=== PATIENT | male | born 1960 | race Caucasian/White ===

== ENCOUNTER 2023-12-14 14:38 | Emergency (ER) | payer OTHER ==
[2023-12-14] MEDS ORDERED: ACETAMINOPHEN 500 MG TAB ONE (15:04)
[2023-12-14] MEDS ORDERED: TDAP (DIPHTH,PERTUSS(ACELL),TET VAC) 0.5 ML VIAL IMVAC ONE (15:05)
--- NOTE | 2023-12-14 15:31 | RAD REPORT ---
EXAM DESCRIPTION: CT - CTHCSPWOC - 12/14/2023 3:22 pm CLINICAL HISTORY: Trauma, head and neck injury. fall COMPARISON: No comparisons TECHNIQUE: Axial 5 mm thick images of the head were obtained. Axial 2 mm thick images of the cervical spine were obtained with sagittal and coronal reconstruction images generated and reviewed. All CT scans are performed using dose optimization technique as appropriate and may include automated exposure control or mA/KV adjustment according to patient size. FINDINGS: CT HEAD WITHOUT CONTRAST: No acute hemorrhage, hydrocephalus or extra-axial collection is identified.No areas of brain edema or midline shift. Mild polypoid thickening within the paranasal sinuses.The calvarium is intact. CT CERVICAL SPINE WITHOUT CONTRAST: No fracture or subluxation.Mild mid and lower cervical degenerative changes.No prevertebral soft tiss ues swelling is identified. IMPRESSION: No acute intracranial or cervical spine findings.
--- NOTE | 2023-12-14 15:34 | RAD REPORT ---
EXAM DESCRIPTION: CT - CTFB CLINICAL HISTORY: fall Fall, trauma, facial pain and swelling COMPARISON: Head C Spine Mpr Wo Con dated 12/14/2023 TECHNIQUE: Axial 2 mm thick images of the face were obtained with sagittal and coronal reconstructio n images. All CT scans are performed using dose optimization technique as appropriate and may include automated exposure control or mA/KV adjustment according to patient size. FINDINGS: No acute facial bone fracture is seen.The mandible is intact. The globes and orbital contents are grossly unremarkable.The paranasal sinuses and mastoids demonstra jacinda mild areas of polypoid thickening. IMPRESSION: Negative for facial bone fracture.
--- NOTE | 2023-12-14 17:15 | RAD REPORT ---
EXAM DESCRIPTION: CT - Spine Lumbar Wo Con - 12/14/2023 4:52 pm CLINICAL HISTORY: Radiculopathy. fall COMPARISON: No comparisons TECHNIQUE: Axial noncontrast CT imaging of the lumbar spine was performed with coronal and sagittal re-formatted images. All CT scans are performed using dose optimization technique as appropriate and may include automated exposure control or mA/KV adjustment according to patient size. FINDINGS: No acute lumbar spine fracture seen. No aggressive marrow pattern or malalignment. Paraspinal tissues are normal in thickness. No paraspinal abscess or hematoma seen. There is postsurgical laminectomy changes at L4 and L5. Posterior disc bulging is seen lower lumbar l evels. IMPRESSION: No acute process seen. Postsurgical lumbar spine with mild lumbar spondylosis.
--- NOTE | 2023-12-14 17:17 | ER ---
Nurse's Notes [facility] Name: Nadeem Francis Age: 63 yrs Sex: Male : 1960 Arrival Date: 12/14/2023 Time: 14:38 Bed 15 Private MD: Diagnosis: Facial Contusion, Left Cheek;Fall on same level, unspecified Presentation: 12/13 14:47 Chief complaint: EMS states: MECHANICAL FALL AT [facility] [place], LEFT FACIAL ABRASION. bp Coronavirus screen: At this time, the client does not indicate any symptoms associated with coronavirus-19. Ebola Screen: No symptoms or risks identified at this time. Initial Sepsis Screen: Does the patient meet any 2 criteria? No. Patient's initial sepsis screen is negative. Does the patient have a suspected source of infection? No. Patient's initial sepsis screen is negative. Risk Assessment: Do you want to hurt yourself or someone else? Patient reports no desire to harm self or others. Onset of symptoms was December 14, 2023 at 14:00. 14:47 Method Of Arrival: EMS: [facility] bp 14:47 Acuity: SAPNA 4 bp Triage Assessment: 14:48 General: Appears in no apparent distress. Behavior is calm, cooperative, appropriate bp for age. Pain: Complains of pain in face. EENT: No deficits noted. Neuro: Level of Consciousness is awake, alert, obeys commands, Oriented to Appropriate for age. Cardiovascular: No deficits noted. Injury Description: Abrasion sustained to left cheek. Historical: - Allergies: 14:48 Bactrim; bp - Home Meds: 14:48 gabapentin oral [Active]; bp - PMHx: 14:48 Hypertensive disorder; Diabetes mellitus; Cerebrovascular accident; bp - Immunization history:: Adult Immunizations up to date. - Infectious Disease History:: Denies. - Social history:: Smoking status: unknown. Screenin:[address] [facility] ED Fall Risk Assessment (Adult) History of falling in the last 3 months, bp including since admission No falls in past 3 months (0 pts). Abuse screen: Denies threats or abuse. Denies injuries from another. Nutritional screening: No deficits noted. Tuberculosis screening: No symptoms or risk factors identified. Assessment: 14:50 General: SEE TRIAGE NOTE. bp 17:05 Reassessment: Patient appears in no apparent distress at this time. Patient is alert, bp oriented x 3, equal unlabored respirations, skin warm/dry/pink. Vital Signs: 14:47 BP 158 / 73; Pulse 77; Resp 16; Temp 98; Pulse Ox 98% ; Weight 86.18 kg; Height 5 ft. 9 bp in. ; 17:02 BP 165 / 50; Pulse 60; Resp 18; Pulse Ox 98% on R/A; aw1 17:34 BP 160 / 64; Pulse 71; Resp 16; Pulse Ox 97% ; bp 14:47 Body Mass Index 28.06 (86.18 kg, 175.26 cm) bp Julienne Coma Score: 14:51 Eye Response: spontaneous(4). Motor Response: obeys commands(6). Verbal Response: ec2 oriented(5). Total: 15. ED Course: 14:47 Patient arrived in ED. bp 14:47 Rubin Mir MD is Attending Physician. ec2 14:48 Triage completed. bp 14:48 Arm band placed on. bp 14:50 Patient has correct armband on for positive identification. bp 14:51 Eric Sorto, RN is Primary Nurse. bp 15:23 Facial Bones W/O Con CT In Process Unspecified. EDMS 15:24 CT Head C Spine In Process Unspecified. EDMS 15:26 CT Lumbar Spine Wo Con In Process Unspecified. EDMS 17:34 No provider procedures requiring assistance completed. Patient did not have IV access bp during this emergency room visit. Administered Medications: 15:18 Drug: Boostrix Tdap IM 0.5 ml IM once; as a single dose Route: IM; Site: right deltoid; bp 15:41 Follow up: Response: No adverse reaction bp 15:18 Drug: Acetaminophen PO 1000 mg PO once Route: PO; bp 15:41 Follow up: Response: No adverse reaction bp 17:33 Drug: Ketorolac IM 30 mg IM once Route: IM; Site: left deltoid; bp 17:34 Follow up: Response: No adverse reaction bp Medication: 14:50 VIS not applicable for this client. bp Outcome: 17:17 Discharge ordered by . ec2 17:34 Discharged to home via wheelchair, with family, bp 17:34 Condition: stable 17:34 Discharge instructions given to patient, Instructed on discharge instructions, follow up and referral plans. wound care, Demonstrated understanding of instructions, follow-up care, wound care, 17:35 Patient left the ED. bp Signatures: Dispatcher [employer] Eric Brown RN RN Gloria Hackett aw1 Rubin Mir MD MD ec2
--- NOTE | 2023-12-14 17:17 | EDPHYS ---
Physician Documentation [facility] Name: Nadeem Francis Age: 63 yrs Sex: Male : 1960 Arrival Date: 12/14/2023 Time: 14:38 Bed 15 Private MD: ED Physician Rubin Mir HPI: 12/13 14:51 This 63 yrs old Male presents to ER via EMS with complaints of Facial Injury. ec2 14:51 Patient arrives today for evaluation after probable fall. Patient was walking ec2 subsequently tripped over a curb and fell down. No loss today, not on blood thinners. Complaining of facial pain, neck pain, low back pain.. Historical: - Allergies: 14:48 Bactrim; bp - Home Meds: 14:48 gabapentin oral [Active]; bp - PMHx: 14:48 Hypertensive disorder; Diabetes mellitus; Cerebrovascular accident; bp - Immunization history:: Adult Immunizations up to date. - Infectious Disease History:: Denies. - Social history:: Smoking status: unknown. ROS: 14:51 Constitutional: as per hpi ec2 Exam: 14:51 Constitutional: GEN: NAD Head: atraumatic Eyes: EOMI Ears: External ears are ec2 normal. CV: regular rate LUNGS: no respiratory distress ABD: non-distended SKIN: Abrasion noted to left facial cheek. MSK: No C or T or L-spine deformities. NEURO: moves all extremities equally Vital Signs: 14:47 BP 158 / 73; Pulse 77; Resp 16; Temp 98; Pulse Ox 98% ; Weight 86.18 kg; Height 5 ft. 9 bp in. ; 17:02 BP 165 / 50; Pulse 60; Resp 18; Pulse Ox 98% on R/A; aw1 17:34 BP 160 / 64; Pulse 71; Resp 16; Pulse Ox 97% ; bp 14:47 Body Mass Index 28.06 (86.18 kg, 175.26 cm) bp Hammond Coma Score: 14:51 Eye Response: spontaneous(4). Motor Response: obeys commands(6). Verbal Response: ec2 oriented(5). Total: 15. MDM: 14:47 Patient medically screened. ec2 14:51 Data reviewed: vital signs. ED course: Patient arrives today for evaluation after ec2 probable fall. Examination remarkable for well-appearing nontoxic vigorous otherwise in no acute distress with abrasions noted to the left face. Will update his tetanus status, obtain CT scan of the head and C-spine as well as of the L-spine. Differential diagnosis include facial contusion, intracranial brain bleed, C-spine fracture. Extraocular motions are intact, no evidence of entrapment or significant facial bone injury. 15:44 ED course: CT of the head and C-spine showed no acute traumatic abnormality, CT of the ec2 facial bones showed no facial bone fractures . 12/13 14:51 Order name: CT Head C Spine; Complete Time: 15:43 ec2 12/13 14:51 Order name: CT Lumbar Spine Wo Con; Complete Time: 17:17 ec2 12/13 14:52 Order name: Facial Bones W/O Con CT; Complete Time: 15:43 ec2 Administered Medications: 15:18 Drug: Boostrix Tdap IM 0.5 ml IM once; as a single dose Route: IM; Site: right deltoid; bp 15:41 Follow up: Response: No adverse reaction bp 15:18 Drug: Acetaminophen PO 1000 mg PO once Route: PO; bp 15:41 Follow up: Response: No adverse reaction bp 17:33 Drug: Ketorolac IM 30 mg IM once Route: IM; Site: left deltoid; bp 17:34 Follow up: Response: No adverse reaction bp Disposition Summary: 12/14/23 17:17 Discharge Ordered Notes: Location: Home ec2 Condition: Stable ec2 Diagnosis - Facial Contusion, Left Cheek ec2 - Fall on same level, unspecified ec2 Followup: ec2 - With: Private Physician - When: - Reason: Recheck today's complaints Forms: - Medication Reconciliation Form ec2 - Antibiotic Education ec2 - Prescription Opioid Use ec2 - Patient Portal Instructions ec2 - Leadership Thank You Letter ec2 Signatures: Dispatcher [employer] Eric Brown RN RN bp Rubin Mir MD MD ec2 Corrections: (The following items were deleted from the chart) 14:51 14:51 Head C Spine MPR Wo Con+CT.RAD.BRZ ordered. EDMS EDMS 14:51 14:51 Spine Lumbar Wo Con+CT.RAD.BRZ ordered. EDMS EDMS
[2023-12-14] MEDS ORDERED: KETOROLAC 30 MG/ML INJ ONE (17:22)
[2023-12-14 18:15] VITALS: BP 160/64; TEMP 98; O2SAT 97
== END 2023-12-14 17:35 | disposition home or self-care (01) ==
LOC: ER 14:38
DX: S00.83XA Contusion of other part of head, initial encounter (principal); W18.30XA Fall on same level, unspecified, initial encounter; Y92.89 Other specified places as the place of occurrence of the external cause; I10 Essential (primary) hypertension; E11.9 Type 2 diabetes mellitus without complications; Z79.899 Other long term (current) drug therapy; Z88.8 Allergy status to other drugs, medicaments and biological substances
CPT/HCPCS: 70450; 70486; 72125; 72131; 76377